=== PATIENT | female | born 2000 | race Caucasian/White ===

== ENCOUNTER 2022-11-05 13:41 | Emergency (ER) | payer OTHER ==
[~2022-11-05] VITALS: Ht 157.5 cm; Wt 62.1 kg
[~2022-11-05 13:41] MED LIST: ALBUTEROL; BENADRYL; TRISPEC; TUSNEL DIABETI118 ML PO; [UNRECOGNIZED DRUG - REMARK]
== END 2022-11-05 20:04 | disposition home or self-care (01) ==
LOC: ER 13:41
DX: K59.00 Constipation, unspecified (principal)